=== PATIENT | female | born 1945 | race Caucasian/White ===

== ENCOUNTER → 2021-09-29 12:30 | Outpatient (CLI) | payer MEDICARE, OTHER, SELFPAY ==
--- NOTE | 2021-09-29 | DI.US.S_ITS ---
PROCEDURE: US ABDOMEN COMPLETE INDICATIONS: Unspecified abdominal pain TECHNIQUE: Real-time scanning was performed of the abdominal and retroperitoneal organs, with image documentation. COMPARISON: None. FINDINGS: Liver: Liver is normal in size and homogeneous in echotexture. Gallbladder: Gallbladder is partially contracted. There is a nonmobile echogenic structure measuring 0.8 cm, compatible with a non-mobile non-shadowing stone or polyp. Gallbladder wall thickness is normal. No pericholecystic fluid collection or sonographic James sign. Biliary ducts: Intrahepatic bile ducts are non-dilated. Extrahepatic bile duct caliber measures 3.5 mm. Normal is 6-7 mm or less in diameter, or 10 mm or less post-cholecystectomy. Pancreas: Visualized portions of the pancreas are sonographically normal. Spleen: Spleen is normal in size and homogeneous in echotexture. Kidneys: Kidneys are normal in size and echotexture. Right kidney measures 11.6 cm long; left kidney measures 10.3 cm long. No hydronephrosis or nephrolithiasis. No solid masses. There is a 3.6 cm diameter simple appearing cyst in mid left kidney. Aorta: Visualized aorta is normal in caliber at less than 3 cm. Iliacs: Proximal common iliac arteries are normal in caliber at less than 2.5 cm. IVC: Intrahepatic inferior vena cava is patent. Miscellaneous: No free abdominal fluid. IMPRESSION: 1. A 0.8 cm nonmobile, non-shadowing stone versus a polyp in gallbladder. A short-term follow-up ultrasound is recommended. Alternatively, MRCP may be obtained for further evaluation. 2. A 3.6 cm diameter simple cyst in left kidney. Dictated by: Kamar Patrick M.D. on 09/29/2021 at 14:36 Approved by: Kamar Patrick M.D. on 09/29/2021 at 14:43
== END ==
PROVIDERS: PCP Family Medicine; Referring Provider Family Medicine; Visit Provider Family Medicine
DX: R10.9 Unspecified abdominal pain (principal); N28.1 Cyst of kidney, acquired
CPT/HCPCS: 76700

== ENCOUNTER 2023-12-09 15:40 | Inpatient (IN) | payer MEDICARE, OTHER, MEDICAID, SELFPAY ==
[2023-12-09] VITALS (19 sets, daily range): BP systolic 96–146; BP diastolic 55–94; PULSE 59–111; RESP 35–55; TEMP 36.6–36.9; O2SAT 92–97; BMI 36.6; BMI 31.2
--- NOTE | 2023-12-09 15:58 | DI.RAD.S_ITS ---
PROCEDURE: XR CHEST 1V INDICATIONS: Shortness of breath TECHNIQUE: One view of the chest was acquired. COMPARISON: None. FINDINGS: Surgical changes and devices: None. Lungs and pleura: No pneumothorax. Small left greater than right pleural effusions. Moderate bibasilar airspace opacity. Mediastinum: Mediastinal contours appear normal. Heart size is normal. Bones and chest wall: No suspicious bony lesions. Overlying soft tissues appear unremarkable. IMPRESSION: Bibasilar pneumonia with parapneumonic effusions. Continued plain film surveillance is recommended to ensure resolution, and to exclude underlying or central malignancy. Dictated by: Janeth Aaron M.D. on 12/09/2023 at 16:15 Approved by: Janeth Aaron M.D. on 12/09/2023 at 16:16
[2023-12-09 16:32] LABS: Add Manual Diff / Slide Review NO; Basophils Absolute Auto 0 /uL (0-100); Basophils Percent Auto 0.4 % (0-2); Eosinophils Absolute Auto 0 /uL (0-450); Eosinophils Percent Auto 0.3 % (2-4); Hematocrit 46.3 % (36-46); Hemoglobin 15.4 g/dL (12.0-16.0); Lymphocytes Absolute Auto 700 /uL (1100-4500); Lymphocytes Percent Auto 8.7 % (25-40); Mean Corpuscular HGB Conc 33.3 % (30-36); Mean Corpuscular Hemoglobin 28.7 PG (26-34); Mean Corpuscular Volume 86.3 fL (80-100); Monocytes Absolute Auto 600 /uL (0-900); Monocytes Percent Auto 6.8 % (3-14); Neutrophils Absolute Auto 6900 /uL (1500-7000); Neutrophils Percent Auto 83.8 % (50-75); Platelet Count 272 X10^3/uL (150-400); Red Blood Cell Count 5.37 X10^6/uL (4.0-5.2); Red Cell Distribution Width 13.2 % (11.6-14.8); White Blood Cell Count 8.3 X10^3/uL (4.5-11.0)
[2023-12-09 16:38] LABS: Lactate (Lactic Acid) 1.6 mmol/L (0.7-2.1)
[2023-12-09 16:39] LABS: Alanine Aminotransferase 74 IU/L (<35); Albumin 3.9 g/dL (3.5-5.0); Albumin Globulin Ratio 1.3 (1.0-2.8); Alkaline Phosphatase 85 U/L (38-126); Aspartate Aminotransferase 44 IU/L (14-36); BUN Creatinine Ratio 25.6 (6-22); Bilirubin Total 0.8 mg/dL (0.2-1.3); Blood Urea Nitrogen 20 mg/dL (7-17); Calcium 9.5 mg/dL (8.4-10.2); Carbon Dioxide 22 mmol/L (22-32); Chloride 107 mmol/L (98-107); Estimated Glomerular Filt Rate > 60 mL/min (>60); Glucose 120 mg/dL (80-110); HEMOLYSIS < 15 (0-50); Potassium 4.5 mmol/L (3.4-5.1); Sodium 135 mmol/L (137-145); Total Protein 6.9 g/dL (6.3-8.2)
[2023-12-09 16:51] LABS: NT-proBNP (BNP-Adult 18+) 6860 pg/mL (<450)
[2023-12-09 17:15] LABS: Influenza A - CEPHEID Flu A NEGATIVE (NEGATIVE); Influenza B - CEPHEID Flu B NEGATIVE (NEGATIVE); Respiratory Syncytial Virus Negative (Negative)
[2023-12-09 17:27] LABS: COVID-19 CEPHEID 4-PLEX PCR Negative (Negative)
--- NOTE | 2023-12-09 18:02 | ED_ITS ---
HPI - General Adult General Chief complaint: Shortness of Breath/Dyspnea Stated complaint: difficulty breathing Time Seen by Provider: 12/09/23 17:49 Source: patient and family Mode of arrival: Wheelchair History of Present Illness HPI narrative: 78-year-old female. No diagnose history of coronary artery disease, lung pathology such as COPD or asthma or congestive heart failure. Approximately 3 weeks ago she started to have shortness of breath on exertion. It has progressively worsened since then to the point where she can not lay flat. She can only walk a few steps without becoming short of breath. Today she developed swelling in her lower extremities. She was seen at a walk-in clinic the couple days ago. Had a chest x-ray. Was told that she would some fluid on her lungs. Was diagnosed with pneumonia. Was prescribed azithromycin. It took some time for her to pick this medication up so she was only had 1 dose of that medication which was today. She is having some cough which is causing her chest discomfort otherwise no chest pain. No fevers. No sinus congestion. No abdominal pain or nausea vomiting. Related Data Home Medications Medication Instructions Recorded Confirmed amoxicillin-potassium clavulanate 2 tab PO BID 12/09/23 12/09/23 1,000 mg-62.5 mg tablet,ext.rel 12hr azithromycin 250 mg tablet mg PO 12/09/23 furosemide 20 mg tablet 20 mg PO QAM 12/09/23 12/09/23 Allergies Allergy/AdvReac Type Severity Reaction Status Date / Time No Known Drug Allergies Allergy Verified 12/09/23 15:46 Review of Systems Review of Systems ROS Unobtainable: All systems reviewed & are unremarkable except as noted in HPI and below Patient History Social History Smoking Status: Former smoker Smoking Status: Former smoker Substance Use Type: does not use Exam Initial Vital Signs Initial Vital Signs: Vital Signs Temperature 98.4 F 12/09/23 15:46 Pulse Rate 109 H 12/09/23 15:46 Respiratory Rate 40 H 12/09/23 15:46 Blood Pressure 121/70 12/09/23 15:46 Pulse Oximetry 97 12/09/23 15:46 Oxygen Delivery Method Room Air 12/09/23 15:46 Const General: cooperative HENMT Head: normal to inspection and normocephalic Resp Effort & Inspection: cough, labored, no retractions and tachypneic Auscultation: rales Cardio Rate: tachycardic Rhythm: regular rhythm GI Inspection: normal to inspection and non-distended Skin General: no rashes or lesions noted Neuro General: patient alert, patient awake, patient oriented x3 and moves all extremities Extrem General: edema Scores GCS [place] coma scale eye opening: Spontaneous [place] coma scale verbal response: Orientated [place] coma scale motor response: Obey commands [place] coma scale total score: 15 Course Orders Ordered: ED Orders 12/09/23 15:58 XR chest 1V Stat EKG-12 Lead Stat Measure peak expiratory flow ONCE RT Consult Eval and Treat NOW 12/09/23 15:59 Covid-19 + FLU A/B + RSV - PCR Stat 12/09/23 16:18 Complete Blood Count AUTO DIFF Stat Comprehensive Metabolic Panel Stat Lactate (Lactic Acid) Stat NT-proBNP (BNP-Adult 18+) Stat Prothrombin Time INR Stat Troponin I Stat 12/09/23 19:27 Troponin & CK Cardiac Panel Stat Acetaminophen (Acetaminophen 325 Mg Tablet) 650 mg PO Q6H PRN PRN Reason: Fever/Mild Pain (1-3) Enoxaparin Sodium (Enoxaparin 40 Mg/0.4 Ml Syringe) 40 mg SUBCUT DAILY ODELL Furosemide (Furosemide 40 Mg/4 Ml Vial) 40 mg IV DAILY ODELL Naloxone HCl (Naloxone 0.4 Mg/Ml Vial) 0.2 mg IV Q2MIN PRN PRN Reason: Opiate Reversal Ondansetron HCl (Ondansetron 4 Mg/2 Ml Inj) 4 mg IV Q4HR PRN PRN Reason: nausea Discontinued Medications Furosemide 60 mg/ Sodium (Chloride) 56 mls @ 112 mls/hr IV NOW ONE Stop: 12/09/23 18:03 Last Infusion: 12/09/23 19:06 Dose: Infused Documented By: Admin: 12/09/23 18:36 Dose: 112 mls/hr Documented By: ALEXEY Lorazepam (Lorazepam 2 Mg/Ml Inj) 0.5 mg IV NOW ONE Stop: 12/09/23 19:09 Last Admin: 12/09/23 19:23 Dose: 0.5 mg Documented By: CHRISTI Vital Signs Vital signs: Vital Signs - 8 hr 12/09/23 15:46 12/09/23 16:12 12/09/23 16:14 Temperature 98.4 F Pulse Rate 109 H 106 H 106 H Respiratory Rate 40 H 46 H Blood Pressure 121/70 Pulse Oximetry 97 Oxygen Delivery Method Room Air 12/09/23 16:14 12/09/23 16:30 12/09/23 16:31 Temperature Pulse Rate 102 H Respiratory Rate 42 H Blood Pressure 133/62 104/61 Pulse Oximetry 95 Oxygen Delivery Method 12/09/23 16:31 12/09/23 17:00 12/09/23 17:00 Temperature Pulse Rate 103 H 101 H Respiratory Rate 45 H 43 H Blood Pressure 98/55 L Pulse Oximetry 95 95 Oxygen Delivery Method 12/09/23 17:30 12/09/23 17:30 12/09/23 18:00 Temperature Pulse Rate 101 H 104 H Respiratory Rate 42 H 51 H Blood Pressure 96/57 L Pulse Oximetry 95 94 Oxygen Delivery Method 12/09/23 18:27 12/09/23 18:27 12/09/23 18:30 Temperature Pulse Rate 111 H 107 H Respiratory Rate 51 H 52 H Blood Pressure 146/82 H Pulse Oximetry 92 92 Oxygen Delivery Method 12/09/23 18:31 12/09/23 18:31 12/09/23 19:00 Temperature Pulse Rate 106 H 109 H Respiratory Rate 54 H 48 H Blood Pressure 137/94 H Pulse Oximetry 93 Oxygen Delivery Method 12/09/23 19:30 12/09/23 20:00 Temperature Pulse Rate 105 H 99 H Respiratory Rate 37 H 37 H Blood Pressure Pulse Oximetry 96 93 Oxygen Delivery Method Room Air Room Air Medical Decision Making Lab Data Lab results reviewed: Yes I reviewed the patient's lab results. 12/09/23 16:18 12/09/23 16:18 Labs: Lab Results 12/09/23 12/09/23 12/09/23 Range/Units 15:59 16:18 19:27 WBC 8.3 (4.5-11.0) X10^3/uL RBC 5.37 H (4.0-5.2) X10^6/uL Hgb 15.4 (12.0-16.0) g/dL Hct 46.3 H (36-46) % MCV 86.3 (80-100) fL MCH 28.7 (26-34) PG MCHC 33.3 (30-36) % RDW 13.2 (11.6-14.8) % Plt Count 272 (150-400) X10^3/uL Neut % (Auto) 83.8 H (50-75) % Lymph % (Auto) 8.7 L (25-40) % Harlan % (Auto) 6.8 (3-14) % Eos % (Auto) 0.3 L (2-4) % Baso % (Auto) 0.4 (0-2) % Neut # (Auto) 6900 (2053-2820) /uL Lymph # (Auto) 700 L (3336-6138) /uL Harlan # (Auto) 600 (0-900) /uL Eos # (Auto) 0 (0-450) /uL Baso # (Auto) 0 (0-100) /uL PT 11.9 (9.4-12.5) SECONDS INR 1.0 (0.9-1.3) Sodium 135 L (137-145) mmol/L Potassium 4.5 (3.4-5.1) mmol/L Chloride 107 (98-107) mmol/L Carbon Dioxide 22 (22-32) mmol/L BUN 20 H (7-17) mg/dL Creatinine 0.78 (0.52-1.04) mg/dL Estimated GFR > 60 (>60) mL/min BUN/Creatinine Ratio 25.6 H (6-22) Glucose 120 H (80-110) mg/dL Lactate 1.6 (0.7-2.1) mmol/L Calcium 9.5 (8.4-10.2) mg/dL Total Bilirubin 0.8 (0.2-1.3) mg/dL AST 44 H (14-36) IU/L ALT 74 H (<35) IU/L Alkaline Phosphatase 85 (38-126) U/L Total Creatine Kinase 104 (30-135) U/L Troponin I 0.060 H 0.065 H (0.01-0.034) ng/mL NT-Pro-B Natriuret Pep 6860 H (<450) pg/mL Total Protein 6.9 (6.3-8.2) g/dL Albumin 3.9 (3.5-5.0) g/dL Globulin 3.0 (1.7-4.1) g/dL Albumin/Globulin Ratio 1.3 (1.0-2.8) SARS-CoV-2 (PCR) Negative (Negative) Influenza A (RT-PCR) Flu a negative (NEGATIVE) Influenza B (RT-PCR) Flu b negative (NEGATIVE) RSV (PCR) Negative (Negative) Urine Dip Bedside Urine Glucose Negative Bedside Urine Bilirubin - Negative Bedside Urine Ketone - Negative Urine Specific [place] 1.015 Bedside Urine Occult Blood - Negative Bedside Urine pH 6.0 Bedside Urine Protein - Negative Bedside Urine Urobilinogen - Negative Bedside Urine Nitrite - Negative Bedside Urine Leukocytes - Negative Esterase Point of care testing: Urine Dip Bedside Urine Glucose Negative Bedside Urine Bilirubin - Negative Bedside Urine Ketone - Negative Urine Specific [place] 1.015 Bedside Urine Occult Blood - Negative Bedside Urine pH 6.0 Bedside Urine Protein - Negative Bedside Urine Urobilinogen - Negative Bedside Urine Nitrite - Negative Bedside Urine Leukocytes - Negative Esterase Imaging Data Chest x-ray: Radiologist's Impression: PROCEDURE: XR CHEST 1V INDICATIONS: Shortness of breath TECHNIQUE: One view of the chest was acquired. COMPARISON: None. FINDINGS: Surgical changes and devices: None. Lungs and pleura: No pneumothorax. Small left greater than right pleural effusions. Moderate bibasilar airspace opacity. Mediastinum: Mediastinal contours appear normal. Heart size is normal. Bones and chest wall: No suspicious bony lesions. Overlying soft tissues appear unremarkable. IMPRESSION: Bibasilar pneumonia with parapneumonic effusions. Continued plain film surveillance is recommended to ensure resolution, and to exclude underlying or central malignancy. ECG Data Attestation: I personally reviewed and interpreted this ECG as follows: Interpretation: Sinus tachycardia Ventricular rate 103 Normal axis Normal QRS Normal QTC no ST T wave changes MDM Narrative Medical decision making narrative: Patient clinically is fluid overloaded. Has crackles on exam. The chest x-ray shows bilateral findings which would be more consistent with edema rather than an infection. She was lower extremity edema. She was orthopneic, dyspneic. She has not hypoxic. Not requiring oxygen. No ischemic changes in the EKG. BNP elevated. Troponin elevated most likely secondary to fluid overload. I have a higher suspicion that this is CHF rather than COPD or pneumonia. Patient was given Lasix. Diuresed approximately 1200 cc. Improved tachypnea a small amount. Discussed the case with hospitalist on-call who will admit for further evaluation and treatment. Discussed the need for admission with the patient. Discharge Plan Departure Patient Disposition: Admitted as Observation Clinical Impression: CHF (congestive heart failure) Admit Date/Time: 12/09/23 20:29 Admit Provider: Hans Vasquez
[2023-12-09 18:08] LABS: Prothrombin Time 11.9 SECONDS (9.4-12.5)
[2023-12-09] MEDS: FUROSEMIDE 60 MG in SODIUM CHLORIDE 0.9% 50 ML 112 MG IV (18:36)
--- NOTE | 2023-12-09 19:06 | PC.NURSE ---
Pt OOB to commode. Continues to be tachypneic and shallow breathing with RR 50's. SPO2 97%. Dr Thrasher made aware. Awaiting new orders.
[2023-12-09] MEDS: LORazepam 2 MG/ML INJ 0.5 MG IV (19:23)
[2023-12-09 19:46] LABS: Creatine Kinase 104 U/L (30-135)
[2023-12-09 19:59] LABS: Troponin I 0.065 ng/mL (0.01-0.034)
--- NOTE | 2023-12-09 20:08 | PC.NURSE ---
Pt breathing is slightly less tachypnic and pt looks slightly less in distress compared to when this nurse came on shift at 1900.
--- NOTE | 2023-12-09 21:09 | DI.ECHO.S_ITS ---
[facility]---------+ [facility] +---------+ : : [address] [address] : : : : [id number] : : : : Phone: [phone] Echocardiogram Report + + :Name: JESSICA ROSSI Study Date: 12/10/2023 Height: 62 in : [facility] ReadingLocation: Weight: 200 lb: : Gender: Female BSA: 1.9 m2 : :: 1945 Age: 78 yrs BP: 98/60 mmHg: :Reason For Study: CONGESTIVE HEART FAILURE : :Ordering Physician: SOCORRO, : :TEJA Braswell MD Performed By: Franchesca Hudson : :Referring: TEJA QUINTANILLA MD : + + Interpretation Summary The left ventricle is normal in size. Left ventricular systolic function is moderately reduced. Left ventricular ejection fraction is estimated to be 35%. Left ventricular global longitudinal strain average is -11.7%. There is moderate global hypokinesis of the left ventricle. The right ventricle is normal in size and function. The right ventricular systolic pressure is estimated to be at least 53 mmHg based on an estimated right atrial pressure of 3 mm Hg. The left atrium is mildly dilated. There is mild mitral stenosis. There is mild to moderate mitral regurgitation. There is critically severe aortic stenosis. The peak aortic velocity is 4.96 m/sec. The calculated aortic valve area is 0.37 cm2. There is mild aortic regurgitation. There is mild to moderate tricuspid regurgitation. The aortic root is normal size. Procedure: A two-dimensional transthoracic echocardiogram with color flow and Doppler was performed. The study quality was technically difficult. There is no prior echocardiogram noted for this patient. The heart rate ranged between 93-101 bpm during the study. Left Ventricle: The left ventricle is normal in size. Left ventricular wall thickness is at the upper limits of normal. Left ventricular systolic function is moderately reduced. Left ventricular global longitudinal strain average is -11.7%. Left ventricular ejection fraction is estimated to be 35%. There is moderate global hypokinesis of the left ventricle. Diastolic function could not be accurately assessed due to confounding valvular disease. Right Ventricle: The right ventricle is normal in size and function. Atria: The left atrium is mildly dilated. Right atrial size is normal. There is no Doppler evidence for an interatrial shunt. Mitral Valve: There is moderate mitral annular calcification. The mitral valve leaflets are moderately calcified. There is mild mitral stenosis. The mitral valve mean gradient is 6.1 mmHg. There is mild to moderate mitral regurgitation. Aortic Valve: The aortic valve is heavily calcified. There is severely reduced leaflet mobility. There is critically severe aortic stenosis. The peak aortic velocity is 4.96 m/sec. The aortic valve mean gradient is 69 mmHg. The calculated aortic valve area is 0.37 cm2. There is mild aortic regurgitation. Tricuspid Valve: The tricuspid valve leaflets are thin and pliable. There is mild to moderate tricuspid regurgitation. The right ventricular systolic pressure is estimated to be at least 53 mmHg based on an estimated right atrial pressure of 3 mm Hg. Pulmonic Valve: The pulmonic valve leaflets are thin and pliable; valve motion is normal. There is mild pulmonic regurgitation. Great Vessels: The aortic root is normal size. The dimensions of the ascending aorta are normal. The IVC is of normal diameter and collapses greater than 50% with a sniff. This suggests a low right atrial pressure of 3 mm Hg. Pericardium/ Pleura There is no pericardial effusion. There is no pleural effusion. MMode/2D Measurements & Calculations LVIDd: 4.7 cm LVOT diam: 2.0 cm LVIDs: 4.0 cm Ao root diam: 2.5 cm FS: 14.9 % asc Aorta Diam: 2.8 cm EPSS: 1.5 cm IVSd: 0.99 cm LVPWd: 1.0 cm LV tillman. diameter/BSA (cm/m^2): 2.4 LV sys. diameter/BSA (cm/m^2): 2.1 LA A2 area: 22.7 cm2 RA long axis: 4.2 cm LA A4 area: 20.8 cm2 RA area: 15.0 cm2 LA length (vol): 5.3 cm RA vol: 45.0 ml LA vol: 75.2 ml RA : 23.5 ml/m2 LA vol index: 39.4 ml/m2 IVC diam: 1.7 cm RVD1 (basal): 3.0 cm RVD2 (mid): 2.7 cm TAPSE: 1.8 cm Doppler Measurements & Calculations Ao V2 max: 496.5 cm/sec LVOT Max Sal: 61.1 cm/sec Ao V2 mean: 388.2 cm/sec LV V1 max P.5 mmHg Ao max P.6 mmHg LV V1 VTI: 12.1 cm Ao mean P.1 mmHg TIFFANY(I,D): 0.33 cm2 Ao V2 VTI: 111.5 cm TIFFANY(V,D): 0.37 cm2 sev ratio: 0.11 TIFFANY indexed to BSA (cm^2/m^2): 0.17 MV E max sal: 147.7 cm/sec TR max sal: 354.3 cm/sec MV A max sal: 102.1 cm/sec TR max P.2 mmHg MV E/A: 1.4 PA V2 max: 96.0 cm/sec Med Peak E' Sal: 4.6 cm/sec PA V2 mean: 67.4 cm/sec E/E' med: 31.9 PA mean P.0 mmHg Lat Peak E' Sal: 6.4 cm/sec PA pr(Accel): 48.2 mmHg E/E' lat: 23.1 E/e' average: 27.5 MV dec time: 0.18 sec MVA(VTI): 1.2 cm2 MV V2 mean: 108.9 cm/sec SV(LVOT): 36.4 ml MV mean P.1 mmHg MV V2 VTI: 30.9 cm Reading Physician:08:42 AM
--- NOTE | 2023-12-09 21:23 | PM.HP.1 ---
History of Present Illness History of Present Illness Date Patient Seen: 12/09/23 Chief complaint: difficulty breathing PFSH Social History Smoking Status: Former smoker Meds Home Medications and Allergies Home Medications Medication Instructions Recorded Confirmed Type azithromycin 250 mg tablet 250 mg PO DAILY 12/09/23 12/09/23 History furosemide 20 mg tablet 20 mg PO QAM 12/09/23 12/09/23 History Allergies Allergy/AdvReac Type Severity Reaction Status Date / Time No Known Drug Allergies Allergy Verified 12/09/23 15:46 Exam Vital Signs (past 8 hours): - 12/09/23 15:46 12/09/23 16:12 12/09/23 16:14 Temperature 98.4 F Pulse Rate 109 H 106 H 106 H Respiratory Rate 40 H 46 H Blood Pressure 121/70 Pulse Oximetry 97 Oxygen Delivery Method Room Air 12/09/23 16:14 12/09/23 16:30 12/09/23 16:31 Temperature Pulse Rate 102 H Respiratory Rate 42 H Blood Pressure 133/62 104/61 Pulse Oximetry 95 Oxygen Delivery Method 12/09/23 16:31 12/09/23 17:00 12/09/23 17:00 Temperature Pulse Rate 103 H 101 H Respiratory Rate 45 H 43 H Blood Pressure 98/55 L Pulse Oximetry 95 95 Oxygen Delivery Method 12/09/23 17:30 12/09/23 17:30 12/09/23 18:00 Temperature Pulse Rate 101 H 104 H Respiratory Rate 42 H 51 H Blood Pressure 96/57 L Pulse Oximetry 95 94 Oxygen Delivery Method 12/09/23 18:27 12/09/23 18:27 12/09/23 18:30 Temperature Pulse Rate 111 H 107 H Respiratory Rate 51 H 52 H Blood Pressure 146/82 H Pulse Oximetry 92 92 Oxygen Delivery Method 12/09/23 18:31 12/09/23 18:31 12/09/23 19:00 Temperature Pulse Rate 106 H 109 H Respiratory Rate 54 H 48 H Blood Pressure 137/94 H Pulse Oximetry 93 Oxygen Delivery Method 12/09/23 19:30 12/09/23 20:00 Temperature Pulse Rate 105 H 99 H Respiratory Rate 37 H 37 H Blood Pressure Pulse Oximetry 96 93 Oxygen Delivery Method Room Air Room Air Oxygen Delivery Method Room Air Objective Labs 12/09/23 16:18 12/09/23 16:18 Labs: Laboratory Results - last 24 hr 12/09/23 12/09/23 12/09/23 15:59 16:18 19:27 WBC 8.3 RBC 5.37 H Hgb 15.4 Hct 46.3 H MCV 86.3 MCH 28.7 MCHC 33.3 RDW 13.2 Plt Count 272 Neut % (Auto) 83.8 H Lymph % (Auto) 8.7 L Sampson % (Auto) 6.8 Eos % (Auto) 0.3 L Baso % (Auto) 0.4 Neut # (Auto) 6900 Lymph # (Auto) 700 L Sampson # (Auto) 600 Eos # (Auto) 0 Baso # (Auto) 0 PT 11.9 INR 1.0 Sodium 135 L Potassium 4.5 Chloride 107 Carbon Dioxide 22 BUN 20 H Creatinine 0.78 Estimated GFR > 60 BUN/Creatinine Ratio 25.6 H Glucose 120 H Lactate 1.6 Calcium 9.5 Total Bilirubin 0.8 AST 44 H ALT 74 H Alkaline Phosphatase 85 Total Creatine Kinase 104 Troponin I 0.060 H 0.065 H NT-Pro-B Natriuret Pep 6860 H Total Protein 6.9 Albumin 3.9 Globulin 3.0 Albumin/Globulin Ratio 1.3 SARS-CoV-2 (PCR) Negative Influenza A (RT-PCR) Flu a negative Influenza B (RT-PCR) Flu b negative RSV (PCR) Negative Assessment & Plan Assessment and plan (1) CHF (congestive heart failure): Status: Acute (2) HTN (hypertension): Status: Acute (3) Elevated troponin: Status: Acute Assessment & Plan narrative: 1. CHF - in the setting of HTN and elevated troponins - telemetry monitoring, diuresed, electrolytes, Is/Os, daily weight monitored - ECHO pending 2. HTN 3. Elevated troponins - EKG w/o ischemic changes and w/o chest pain - ECHO to r/o wall motion abnormalities - ASA - pending lipids, A1C, TSH DVT prophylaxis - Lovenox
--- NOTE | 2023-12-09 22:03 | PM.HP.1 ---
History of Present Illness History of Present Illness Date Patient Seen: 12/09/23 Time Patient Seen: 22:00 Date of Onset of Symptoms: 11/18/23 Chief complaint: difficulty breathing Narrative: 78 y/o without known PMH apart from former smoking, on no medications, developed progressive shortness of breath approximately 3 weeks ago. Initially short of breath with activity, subsequently developed orthopnea with b/l leg swelling. Few days ago seen in walk-in clinic and prescribed Augmentin / Z-pack for presumed PNA. She did not fill RXs up until this morning. In the ED workup showing CHF and elevated troponins. She denies chest pain or pressure, sweating, nausea, dizziness, either today or in the past. Denies chills, fever or productive cough. Given dose of Lasix ivp, 60 mg, in the ED and quickly diuresed 1.5 L. [facility] Social History household members: none Smoking Status: Former smoker alcohol intake: never Meds Home Medications and Allergies Home Medications Medication Instructions Recorded Confirmed Type azithromycin 250 mg tablet 250 mg PO DAILY 12/09/23 12/09/23 History furosemide 20 mg tablet 20 mg PO QAM 12/09/23 12/09/23 History Allergies Allergy/AdvReac Type Severity Reaction Status Date / Time No Known Drug Allergies Allergy Verified 12/09/23 15:46 Review of Systems Review of Systems Narrative: generalized weakness w/o sweats, chills, fever Cardiovascular Comments: progressive SOB, legs swelling, orthopnea w/o chest pain or palpitations Respiratory Comments: see above Gastrointestinal Comments: w/o complaints Genitourinary Comments: w/o complaints Exam Vital Signs (past 8 hours): - 12/09/23 15:46 12/09/23 16:12 12/09/23 16:14 Temperature 98.4 F Pulse Rate 109 H 106 H 106 H Respiratory Rate 40 H 46 H Blood Pressure 121/70 Pulse Oximetry 97 Oxygen Delivery Method Room Air 12/09/23 16:14 12/09/23 16:30 12/09/23 16:31 Temperature Pulse Rate 102 H Respiratory Rate 42 H Blood Pressure 133/62 104/61 Pulse Oximetry 95 Oxygen Delivery Method 12/09/23 16:31 12/09/23 17:00 12/09/23 17:00 Temperature Pulse Rate 103 H 101 H Respiratory Rate 45 H 43 H Blood Pressure 98/55 L Pulse Oximetry 95 95 Oxygen Delivery Method 12/09/23 17:30 12/09/23 17:30 12/09/23 18:00 Temperature Pulse Rate 101 H 104 H Respiratory Rate 42 H 51 H Blood Pressure 96/57 L Pulse Oximetry 95 94 Oxygen Delivery Method 12/09/23 18:27 12/09/23 18:27 12/09/23 18:30 Temperature Pulse Rate 111 H 107 H Respiratory Rate 51 H 52 H Blood Pressure 146/82 H Pulse Oximetry 92 92 Oxygen Delivery Method 12/09/23 18:31 12/09/23 18:31 12/09/23 19:00 Temperature Pulse Rate 106 H 109 H Respiratory Rate 54 H 48 H Blood Pressure 137/94 H Pulse Oximetry 93 Oxygen Delivery Method 12/09/23 19:30 12/09/23 20:00 12/09/23 20:30 Temperature Pulse Rate 105 H 99 H 96 H Respiratory Rate 37 H 37 H 55 H Blood Pressure Pulse Oximetry 96 93 94 Oxygen Delivery Method Room Air Room Air 12/09/23 21:00 12/09/23 21:24 12/09/23 21:25 Temperature Pulse Rate 90 59 L Respiratory Rate 40 H 42 H Blood Pressure 106/66 Pulse Oximetry 94 Oxygen Delivery Method Oxygen Delivery Method Room Air Narrative Exam Narrative: laying in bed in no distress HENMT Other: normocephalic, oropharynx of normal appearance Eyes Other: eomi Neck Other: w/o JVD Resp Other: b/l rhonchi Cardio Other: RRR / borderline bradycardic Skin Other: w/o rashes Neuro Other: w/o focal deficits Extrem Other: b/l leg swelling Psych Other: appropriate mood, lucid Objective ECG Impression: NSR, w/o ischemic changes Labs 12/09/23 16:18 12/09/23 16:18 Labs: Laboratory Results - last 24 hr 12/09/23 12/09/23 12/09/23 15:59 16:18 19:27 WBC 8.3 RBC 5.37 H Hgb 15.4 Hct 46.3 H MCV 86.3 MCH 28.7 MCHC 33.3 RDW 13.2 Plt Count 272 Neut % (Auto) 83.8 H Lymph % (Auto) 8.7 L [place] % (Auto) 6.8 Eos % (Auto) 0.3 L Baso % (Auto) 0.4 Neut # (Auto) 6900 Lymph # (Auto) 700 L [place] # (Auto) 600 Eos # (Auto) 0 Baso # (Auto) 0 PT 11.9 INR 1.0 Sodium 135 L Potassium 4.5 Chloride 107 Carbon Dioxide 22 BUN 20 H Creatinine 0.78 Estimated GFR > 60 BUN/Creatinine Ratio 25.6 H Glucose 120 H Lactate 1.6 Calcium 9.5 Total Bilirubin 0.8 AST 44 H ALT 74 H Alkaline Phosphatase 85 Total Creatine Kinase 104 Troponin I 0.060 H 0.065 H NT-Pro-B Natriuret Pep 6860 H Total Protein 6.9 Albumin 3.9 Globulin 3.0 Albumin/Globulin Ratio 1.3 SARS-CoV-2 (PCR) Negative Influenza A (RT-PCR) Flu a negative Influenza B (RT-PCR) Flu b negative RSV (PCR) Negative Assessment & Plan Assessment and plan (1) CHF (congestive heart failure): Status: Acute (2) Elevated troponin: Status: Acute Assessment & Plan narrative: 1. CHF - ECHO pending - new onset - had 60 mg of Lasix in the ED, continue with 40 in am and adjust based on output - monitored electrolytes, TSH - Is/Os, daily weight 2. Elevated Troponins - media monitor, ECHO for suspected wall motion abnormalities, lipid panel, A1C - w/o angina, EKG non-ischemic - ASA - cardiology referral - A1C - TSH DVT prophylaxis - Lovenox Quality VTE Deep Vein Thrombosis/Pulmonary Embolism Present on Admission: No
[2023-12-10] VITALS: BP 110/72; PULSE 94; RESP 34; TEMP 36.7; O2SAT 97
[2023-12-10 00:34] LABS: HEMOLYSIS 21 (0-50); Potassium 4.4 mmol/L (3.4-5.1)
[2023-12-10 00:50] LABS: Troponin I 0.076 ng/mL (0.01-0.034)
[2023-12-10 00:55] LABS: Hemoglobin A1C% w Est Avg Glu 5.4 % (4.0-6.0); Procalcitonin 0.08 ng/mL (<0.5)
[2023-12-10 01:09] LABS: TSH w/ Reflex to FT4 3.88 uIU/mL (0.47-4.68)
[2023-12-10 03:00] VITALS: BP 98/60; PULSE 98; RESP 37; TEMP 36.7; O2SAT 97
--- NOTE | 2023-12-10 04:07 | PC.ADMIT ---
[facility] Admission Note: Patient admitted to AC unit from ED at 21:45. Alert and oriented x 4, cooperative. Denied pain. Tele placed, ICU nurse notified. Oriented to room and call light. Bed in low/ locked position, call light within reach. Bed alarm on for safety. The patient,Keren Ledesma,78 y/o, was given written information regarding hospital policies, unit procedures and contact persons. Patient's smoking status: Former smoker. Vital Signs - 8 hr 12/09/23 20:30 12/09/23 20:32 12/09/23 21:00 Temperature Pulse Rate 96 H 90 Respiratory Rate 55 H 40 H Blood Pressure Pulse Oximetry 94 94 Oxygen Delivery Method Nasal Cannula Oxygen Flow Rate Fraction of Inspired Oxygen 12/09/23 21:24 12/09/23 21:25 12/10/23 00:00 Temperature 98.1 F Pulse Rate 59 L 94 H Respiratory Rate 42 H 34 H Blood Pressure 106/66 110/72 Pulse Oximetry 97 Oxygen Delivery Method Oxygen Flow Rate 2 Fraction of Inspired Oxygen 12/10/23 01:00 12/10/23 03:00 Temperature 98.1 F Pulse Rate 98 H Respiratory Rate 37 H Blood Pressure 98/60 Pulse Oximetry 97 Oxygen Delivery Method Nasal Cannula Oxygen Flow Rate 2 Fraction of Inspired Oxygen 28
--- NOTE | 2023-12-10 04:13 | RT ---
Spoke to pt regarding heated high flow oxygen therapy and it's benefits. Pt is reluctant, and refused this modality. She is currently supported on 2L NC. RN aware.
[2023-12-10 07:04] LABS: Add Manual Diff / Slide Review NO; Basophils Absolute Auto 0 /uL (0-100); Basophils Percent Auto 0.6 % (0-2); Eosinophils Absolute Auto 100 /uL (0-450); Eosinophils Percent Auto 0.9 % (2-4); Hematocrit 41.2 % (36-46); Hemoglobin 13.6 g/dL (12.0-16.0); Lymphocytes Absolute Auto 1500 /uL (1100-4500); Lymphocytes Percent Auto 19.3 % (25-40); Mean Corpuscular Hemoglobin 28.7 PG (26-34); Mean Corpuscular Volume 86.8 fL (80-100); Monocytes Absolute Auto 800 /uL (0-900); Monocytes Percent Auto 10.1 % (3-14); Neutrophils Absolute Auto 5500 /uL (1500-7000); Neutrophils Percent Auto 69.1 % (50-75); Platelet Count 261 X10^3/uL (150-400); Red Blood Cell Count 4.74 X10^6/uL (4.0-5.2)
[2023-12-10 07:30] LABS: BUN Creatinine Ratio 23.2 (6-22); Blood Urea Nitrogen 19 mg/dL (7-17); Calcium 8.9 mg/dL (8.4-10.2); Carbon Dioxide 24 mmol/L (22-32); Chloride 107 mmol/L (98-107); Cholesterol 137 mg/dL (140-199); Estimated Glomerular Filt Rate > 60 mL/min (>60); Glucose 88 mg/dL (80-110); HDL Cholesterol 38 mg/dL (40-60); HEMOLYSIS < 15 (0-50); LDL Cholesterol Calculated 80 mg/dL (<100); Magnesium 2.2 mg/dL (1.6-2.3); Sodium 134 mmol/L (137-145); Triglycerides 96 mg/dL (35-150)
[2023-12-10 08:06] LABS: Troponin I 0.077 ng/mL (0.01-0.034)
[2023-12-10 08:15] VITALS: BP 117/71; PULSE 97; RESP 20; TEMP 36.7; O2SAT 96
[2023-12-10] MEDS: FUROSEMIDE 20 MG/2 ML VIAL IV (09:17)
[2023-12-10] MEDS: ENOXAPARIN 40 MG/0.4 ML SYRINGE SUBCUT (09:19)
--- NOTE | 2023-12-10 11:39 | P.PN_ITS ---
Subjective Subjective Interval history: 78 F admitted with new diagnosis of heart failure. No chest pain today, shortness of breath is a bit improved but has dyspnea with minimal exertion still. Legs are still swollen. Echo shows EF of approx 35% today with critically severe aortic stenosis. Troponins uptrending very slightly this morning. Discussed with Dr. Jasmine of [facility], recommended transfer for [facility] and expedited valve replacement referral. Her BP was a bit soft after 60 mg of IV lasix, will reduce to 20 mg IV this morning. She remains on 2L O2. Exam Vital Signs (past 8 hours): - 12/10/23 08:15 Temperature 98.0 F Pulse Rate 97 H Respiratory Rate 20 Blood Pressure 117/71 Pulse Oximetry 96 Oxygen Flow Rate 2 Fraction of Inspired Oxygen 28 Oxygen Delivery Method Nasal Cannula Oxygen Flow Rate 2 Narrative Exam Narrative: General:? Patient is well developed and well nourished, in no distress at this time. HEENT:? Normocephalic, atraumatic, extraocular muscles intact, oral pharynx is clear and mucous membranes are moist. Neck: supple and symmetric, trachea is midline, no cervical adenopathy. Negative for JVD Chest:? Normal AP diameter and contour without kyphoscoliosis, no tachypnea, equal chest rise bilaterally. Lungs:? CTA b/l no wheezing rhonchi or rales. Cardio:?RRR no m/r/g. Abdomen: S NT ND. No CVA tenderness. Musculoskeletal:? Muscle strength and tone are equal within normal limits, no deformity. Extremities: No edema or joint effusions. No cyanosis or clubbing. Skin:? Pale,? Warm to touch,dry and intact without rashes, ulcerations or petechiae.? Neuro:? Alert and orientated x3,? sensation to touch intact in all extremities, no gross deficits noted of cranial nerves. Psych:? Patient has a well-kept appearance, appropriate affect, mental status attitude thought context and judgment are appropriate for age. Objective ECG Impression: Sinus tachycardia. Labs 12/10/23 06:15 12/10/23 06:15 Labs: Laboratory Results - last 24 hr 12/09/23 12/09/23 12/09/23 15:59 16:18 19:27 WBC 8.3 RBC 5.37 H Hgb 15.4 Hct 46.3 H MCV 86.3 MCH 28.7 MCHC 33.3 RDW 13.2 Plt Count 272 Neut % (Auto) 83.8 H Lymph % (Auto) 8.7 L [place] % (Auto) 6.8 Eos % (Auto) 0.3 L Baso % (Auto) 0.4 Neut # (Auto) 6900 Lymph # (Auto) 700 L [place] # (Auto) 600 Eos # (Auto) 0 Baso # (Auto) 0 PT 11.9 INR 1.0 Sodium 135 L Potassium 4.5 Chloride 107 Carbon Dioxide 22 BUN 20 H Creatinine 0.78 Estimated GFR > 60 BUN/Creatinine Ratio 25.6 H Glucose 120 H Hemoglobin A1c Lactate 1.6 Calcium 9.5 Magnesium Total Bilirubin 0.8 AST 44 H ALT 74 H Alkaline Phosphatase 85 Total Creatine Kinase 104 Troponin I 0.060 H 0.065 H NT-Pro-B Natriuret Pep 6860 H Total Protein 6.9 Albumin 3.9 Globulin 3.0 Albumin/Globulin Ratio 1.3 Triglycerides Cholesterol LDL Cholesterol, Calc HDL Cholesterol Procalcitonin TSH SARS-CoV-2 (PCR) Negative Influenza A (RT-PCR) Flu a negative Influenza B (RT-PCR) Flu b negative RSV (PCR) Negative 12/10/23 12/10/23 00:13 06:15 WBC 8.0 RBC 4.74 Hgb 13.6 Hct 41.2 MCV 86.8 MCH 28.7 MCHC 33.0 RDW 13.0 Plt Count 261 Neut % (Auto) 69.1 Lymph % (Auto) 19.3 L [place] % (Auto) 10.1 Eos % (Auto) 0.9 L Baso % (Auto) 0.6 Neut # (Auto) 5500 Lymph # (Auto) 1500 [place] # (Auto) 800 Eos # (Auto) 100 Baso # (Auto) 0 PT INR Sodium 134 L Potassium 4.4 4.0 Chloride 107 Carbon Dioxide 24 BUN 19 H Creatinine 0.82 Estimated GFR > 60 BUN/Creatinine Ratio 23.2 H Glucose 88 Hemoglobin A1c 5.4 Lactate Calcium 8.9 Magnesium 2.2 Total Bilirubin AST ALT Alkaline Phosphatase Total Creatine Kinase Troponin I 0.076 H 0.077 H NT-Pro-B Natriuret Pep Total Protein Albumin Globulin Albumin/Globulin Ratio Triglycerides 96 Cholesterol 137 L LDL Cholesterol, Calc 80 HDL Cholesterol 38 L Procalcitonin 0.08 TSH 3.88 SARS-CoV-2 (PCR) Influenza A (RT-PCR) Influenza B (RT-PCR) RSV (PCR) [facility] Social History household members: none Smoking Status: Former smoker alcohol intake: never Assessment & Plan Assessment & Plan narrative: 1. Acute systolic heart failure with acute respiratory failure with hypoxia - soft BP today with diuresis with 60 mg IV in the ER. Gave 20 mg IV this morning with slight improvement, will trial 40 mg IV this evening. - start GDMT with metoprolol and lisinopril when able, however with need for diuresis cannot initiate currently. - started asa 81 mg and atorvastatin 40 mg for now for possible CAD. - heart failure is likely a result of her severe aortic stenosis. - Discussed with Dr. Jasmine, cardiology, recommended transfer for [facility] currently and expedited valve replacement evaluation - discussed with patient the urgentness of this evaluation and need for transfer, she is feeling a bit overwhelmed at the moment. - TSH 3.88, LDL 80, HDL 38, TG 96. A1c 5.4%. 2. Myocardial injury - EKG without evidence of acute ischemia, reviewed personally. Shows sinus tachycardia. - continue to trend troponins until downtrending, currently 0.077. - will start ASA / statin for now. 3. Severe / critical Aortic stenosis - continue management as noted above. Code: Full, surrogate is patient's son DVT: Lovenox 40 mg daily. Dispo: Inpatient status, pending transfer as discussed above Discussed with cardiology as noted above to contribute to the above assessment an plan. Quality VTE Deep Vein Thrombosis/Pulmonary Embolism Present on Admission: No
[2023-12-10 13:58] LABS: Troponin I 0.062 ng/mL (0.01-0.034)
--- NOTE | 2023-12-10 14:07 | CM.DANOTE ---
Brief DCP Assessment Note pt is a 78yo F here following CHF/televated troponin. New diagnosis of heart failure. PCP Junior Hanccok Payer Medicare and [employer] reviewed EMR. Per chart review, pt lives alone in [place], normally indep at baseline. pt has been having SOB for three weeks and has gotten worse over time. Per hospitalist in rounds, EF of 35%, attempting to transfer pt for heart cath/valve eval/replacement.. Per hospitalist, anticipate transfer later this evening. Plan: plan to transfer to higher level of care. CM team will continue to follow as needed. ASHLI Godinez Discharge Planning/Care Management CM Discharge Assessment Start: 12/10/23 14:00 Freq: Status: Active Protocol: Document 12/10/23 14:00 (Rec: 12/10/23 14:06 [id number]) Discharge Planning Assessment Assigned Service Porter ASHLI Streeter Advance Directives? No History Provided By Patient,Medical Record Prior Living Arrangements House Household Members none Discharge Plan Transfer to Higher Level of Care Transportation Arrangement current plan is to transfer to higher level of care for heart cath/heart valve eval Whiteboard Updated in Patient Room with No name and ext. # of Service Porter Review Status In Process Next Review Type Continued Stay Review
[2023-12-10 16:50] VITALS: BP 102/71; PULSE 97; RESP 20; TEMP 36.3; O2SAT 98
--- NOTE | 2023-12-10 17:50 | PM.DS.1 ---
History of Present Illness History of Present Illness Date Patient Seen: 12/11/23 Time Patient Seen: 12:53 Date of Onset of Symptoms: 11/18/23 Chief complaint: difficulty breathing Narrative: Per admitting provider, 78 y/o without known PMH apart from former smoking, on no medications, developed progressive shortness of breath approximately 3 weeks ago. Initially short of breath with activity, subsequently developed orthopnea with b/l leg swelling. Few days ago seen in walk-in clinic and prescribed Augmentin / Z-pack for presumed PNA. She did not fill RXs up until this morning. In the ED workup showing CHF and elevated troponins. She denies chest pain or pressure, sweating, nausea, dizziness, either today or in the past. Denies chills, fever or productive cough. Given dose of Lasix ivp, 60 mg, in the ED and quickly diuresed 1.5 L. Discharge Providers Provider Date of admission: 12/09/23 20:29 Discharge Date: 12/11/23 Primary care physician: Junior Hancock MD Discharge provider: Timoteo Kennedy DO Summary Hospital Course Discharge Diagnosis: 1. Acute systolic heart failure with acute respiratory failure with hypoxia 2. Myocardial injury 3. Severe / critical Aortic stenosis Hospital Course: This is a 78 year old female who presented with signs and symptoms of new onset heart failure. She was admitted for further evaluation and diuresis as she was requiring 2L of oxygen at the time of admission. Echocardiogram showed an EF of approx 35% with critically severe aortic stenosis with valve area of 0.36, and velocity of 4.96 m/s. Her BP fell slightly with 60 mg of IV furosemide given in the ER, dose was reduced to 20 mg in the morning, and then 40 mg in the evening with improved BP. Was unable to initiate beta leif or bryce/arb due to blood pressures and need for diuresis. BP are improved on 12/10 and consider starting therapy tomorrow at accepting facility. With furosemide dosing, patient was net negative 3L since admission and weight was down 1 kg on 12/10. Troponin I peaked at 0.077 then downtrended. EKG showed sinus tachycardia without evidence of acute ischemia. Discussed with cardiology Dr. Jasmine ([facility]) whom recommended transfer for [facility] and urgent referral for consideration of Aortic valve replacement. Discussed with american sign language interpreter at [facility] whom agreed. Patient was accepted for transfer by Dr. Davidson, hospitalist, at [facility] where she was transferred for further evaluation and management of her acute heart failure. Please see above for additional information. 1. Acute systolic heart failure with acute respiratory failure with hypoxia - continues on 40 mg IV BID furosemide today. - start GDMT with metoprolol and lisinopril when able, however with need for diuresis cannot initiate currently. - started asa 81 mg and atorvastatin 40 mg for now for possible CAD. - heart failure is likely a result of her severe aortic stenosis. - Discussed with Dr. Jasmine, cardiology, recommended transfer for [facility] currently and expedited valve replacement evaluation - discussed with patient the urgentness of this evaluation and need for transfer, she is feeling a bit overwhelmed at the moment. - TSH 3.88, LDL 80, HDL 38, TG 96. A1c 5.4%. 2. Myocardial injury - EKG without evidence of acute ischemia, reviewed personally. Shows sinus tachycardia. - continue to trend troponins until downtrending, currently 0.077. - will start ASA / statin for now. 3. Severe / critical Aortic stenosis - continue management as noted above. Code: Full, surrogate is patient's son Dispo: Transfer to [facility]. Time Spent with Patient Time spent: Greater than 30 minutes Exam Vital Signs (past 8 hours): - 12/10/23 16:50 Temperature 97.3 F L Pulse Rate 97 H Respiratory Rate 20 Blood Pressure 102/71 Pulse Oximetry 98 Oxygen Flow Rate 2 Fraction of Inspired Oxygen 28 Oxygen Delivery Method Nasal Cannula Oxygen Flow Rate 2 Narrative Exam Narrative: General:? Mildly ill appearing female, fatigued CV: RRR no obvious m/r/g PULM: no rhonchi or rales, diminished bilateral bases Abd; S NT ND Ext: 2+ edema b/l LE Neuro: No focal deficits. Objective Labs 12/11/23 05:33 12/11/23 05:33 Labs: Laboratory Results - last 24 hr 12/09/23 12/09/23 12/10/23 16:18 19:27 00:13 WBC RBC Hgb Hct MCV MCH MCHC RDW Plt Count Neut % (Auto) Lymph % (Auto) [place] % (Auto) Eos % (Auto) Baso % (Auto) Neut # (Auto) Lymph # (Auto) [place] # (Auto) Eos # (Auto) Baso # (Auto) PT 11.9 INR 1.0 Sodium Potassium 4.4 Chloride Carbon Dioxide BUN Creatinine Estimated GFR BUN/Creatinine Ratio Glucose Hemoglobin A1c 5.4 Calcium Magnesium Total Creatine Kinase 104 Troponin I 0.065 H 0.076 H Triglycerides Cholesterol LDL Cholesterol, Calc HDL Cholesterol Procalcitonin 0.08 TSH 3.88 12/10/23 12/10/23 06:15 13:18 WBC 8.0 RBC 4.74 Hgb 13.6 Hct 41.2 MCV 86.8 MCH 28.7 MCHC 33.0 RDW 13.0 Plt Count 261 Neut % (Auto) 69.1 Lymph % (Auto) 19.3 L [place] % (Auto) 10.1 Eos % (Auto) 0.9 L Baso % (Auto) 0.6 Neut # (Auto) 5500 Lymph # (Auto) 1500 [place] # (Auto) 800 Eos # (Auto) 100 Baso # (Auto) 0 PT INR Sodium 134 L Potassium 4.0 Chloride 107 Carbon Dioxide 24 BUN 19 H Creatinine 0.82 Estimated GFR > 60 BUN/Creatinine Ratio 23.2 H Glucose 88 Hemoglobin A1c Calcium 8.9 Magnesium 2.2 Total Creatine Kinase Troponin I 0.077 H 0.062 H Triglycerides 96 Cholesterol 137 L LDL Cholesterol, Calc 80 HDL Cholesterol 38 L Procalcitonin TSH PFSH Social History household members: none Smoking Status: Former smoker alcohol intake: never Discharge Plan Discharge Plan Patient Disposition: [facility] Diet/Activity/Treatments Diet: Diet as Tolerated, Regular and Low-sodium Liquid consistency: Normal/Thin Food texture: Regular Activity: No restrictions Visit Report/Discharge Packet Instructions: Heart Failure, Aortic Stenosis -- Adult, How to Central With Heart Failure, Why It Is Important to Quit Smoking If You Have Heart Failure Stand Alone Forms: Congestive Heart Failure Discharge Data Primary Care Provider: Junior Hancock VTE Deep Vein Thrombosis/Pulmonary Embolism Present on Admission: No
[2023-12-10] MEDS: FUROSEMIDE 20 MG/2 ML VIAL 40 MG IV (18:20)
[2023-12-10 19:50] VITALS: BMI 31.2
[2023-12-10 19:51] VITALS: BMI 31.2
[2023-12-10] MEDS: ATORVASTATIN 20 MG TABLET 40 MG PO (20:07)
[2023-12-10 20:16] VITALS: BMI 31.2
[2023-12-10 20:54] VITALS: BP 111/63; PULSE 61; RESP 17; TEMP 36.3; O2SAT 99
--- NOTE | 2023-12-10 22:28 | PC.NURSE ---
Received call for patients Emergency contact (Corinna Perez) with concerns and questions, who asked about transfer to another facility. I informed her that a physician at [facility] had accepted, but that there is no available bed at this time. The patient would remain here until one opened. Corinna also stated that Pt has expressed that she wants to go home before they transfer her because she has things that needs to be done. This was verified by the RN caring for the patient. Both the Nurse and Corinna have discouraged the patient from attempting to go home because she is physically unable to do so. Crisrichelle also stated tghat she would like Social workers to look into finder caregivers for her at home, she states that she can help some but not all the help she needs. Corinna stated that the only safe family member to contact Is Tony Payne [phone], She had concerns about all other's being addicted and not sober. Later in the evening a granddaughter came by to visit and left a number to be contacted when patient was transferred, Leola Pabon [phone], apparently the patient approved.
[2023-12-11 00:38] VITALS: BP 110/60; PULSE 66; RESP 17; TEMP 35.9; O2SAT 94
[2023-12-11 05:00] VITALS: BP 130/66; PULSE 84; RESP 18; TEMP 36.4; O2SAT 96
[2023-12-11 05:47] LABS: Add Manual Diff / Slide Review NO; Basophils Absolute Auto 100 /uL (0-100); Basophils Percent Auto 0.6 % (0-2); Eosinophils Absolute Auto 200 /uL (0-450); Hematocrit 45.3 % (36-46); Hemoglobin 15.4 g/dL (12.0-16.0); Lymphocytes Absolute Auto 1800 /uL (1100-4500); Lymphocytes Percent Auto 21.8 % (25-40); Mean Corpuscular HGB Conc 34.1 % (30-36); Mean Corpuscular Hemoglobin 29.1 PG (26-34); Mean Corpuscular Volume 85.4 fL (80-100); Monocytes Absolute Auto 900 /uL (0-900); Monocytes Percent Auto 10.7 % (3-14); Neutrophils Absolute Auto 5500 /uL (1500-7000); Neutrophils Percent Auto 64.9 % (50-75); Platelet Count 253 X10^3/uL (150-400); Red Cell Distribution Width 13.3 % (11.6-14.8); White Blood Cell Count 8.5 X10^3/uL (4.5-11.0)
[2023-12-11 06:02] LABS: Alanine Aminotransferase 60 IU/L (<35); Albumin 3.9 g/dL (3.5-5.0); Albumin Globulin Ratio 1.3 (1.0-2.8); Alkaline Phosphatase 80 U/L (38-126); Aspartate Aminotransferase 33 IU/L (14-36); BUN Creatinine Ratio 25.9 (6-22); Bilirubin Total 0.8 mg/dL (0.2-1.3); Blood Urea Nitrogen 22 mg/dL (7-17); Calcium 9.3 mg/dL (8.4-10.2); Carbon Dioxide 26 mmol/L (22-32); Chloride 103 mmol/L (98-107); Estimated Glomerular Filt Rate > 60 mL/min (>60); Glucose 97 mg/dL (80-110); HEMOLYSIS < 15 (0-50); Magnesium 2.2 mg/dL (1.6-2.3); Potassium 3.9 mmol/L (3.4-5.1); Sodium 135 mmol/L (137-145); Total Protein 6.9 g/dL (6.3-8.2)
[2023-12-11] MEDS: ASPIRIN EC 81 MG TABLET PO (08:56)
[2023-12-11] MEDS: ENOXAPARIN 40 MG/0.4 ML SYRINGE SUBCUT (08:56)
[2023-12-11] MEDS: FUROSEMIDE 40 MG/4 ML VIAL IV (08:56)
--- NOTE | 2023-12-11 09:11 | CM.DPC ---
DCP Hospital Transfer Per MD, accepting physician at [facility] for hospital transfer for higher level of care need for CHF and hearing care professional working to set up time for transport to [facility]. ASHLI Mas
[2023-12-11 09:13] VITALS: O2SAT 96
--- NOTE | 2023-12-11 13:25 | PC.NURSE ---
Transfer: Pt transfered to [facility] by acls transport. Report given to amb crew. Report called to breanna at [facility]. Reviewed hospital course. How pt has been doing. Questions answered. She may return call at any time if needed.
== END 2023-12-11 13:20 | disposition short-term general hospital (02) | DRG 291 ==
LOC: ED 17:49 → AC 20:30
PROVIDERS: Emergency Medicine; Internal Medicine; Admitting Provider Internal Medicine; Emergency Provider Emergency Medicine; PCP Family Medicine; Referring Provider Emergency Medicine; Visit Provider Internal Medicine
DX: I11.0 Hypertensive heart disease with heart failure (principal); I50.21 Acute systolic (congestive) heart failure; J96.01 Acute respiratory failure with hypoxia; I5A Non-ischemic myocardial injury (non-traumatic); I35.0 Nonrheumatic aortic (valve) stenosis; Z87.891 Personal history of nicotine dependence
CPT/HCPCS: 0241U; 36415; 71045; 80048; 80053; 80061; 81003; 82550; 83036; 83605; 83735; 83880; 84132; 84145; 84443; 84484; 85025; 85610; 93005; 93306; 94762; 96365; 96375; 99284; 99285; J1650; J1940; J2060

== ENCOUNTER → 2024-09-21 11:53 | Outpatient (CLI) | payer MEDICARE, OTHER, MEDICAID, SELFPAY ==
--- NOTE | 2024-09-21 11:57 | DI.RAD.S_ITS ---
PROCEDURE: XR CHEST 2V INDICATIONS: Unspecified abdominal pain TECHNIQUE: 2 views of the chest were acquired. COMPARISON: [facility], CR, XR CHEST 1V, 12/09/2023, 15:59. FINDINGS: Surgical changes and devices: Ascending aortic stent. Left axillary lymph node dissection. Lungs and pleura: Lungs are clear. No pleural effusions or pneumothorax. Mediastinum: Mediastinal contours are normal. Heart size is normal. Bones and chest wall: No suspicious bony abnormalities. Soft tissues appear unremarkable. IMPRESSION: No acute cardiopulmonary abnormality is seen. Dictated by: Armando Duncan M.D. on 09/21/2024 at 12:13 Approved by: Armando Duncan M.D. on 09/21/2024 at 12:16
--- NOTE | 2024-09-21 11:57 | DI.US.S_ITS ---
PROCEDURE: US ABDOMEN COMPLETE INDICATIONS: Unspecified abdominal pain TECHNIQUE: Real-time scanning was performed of the abdominal and retroperitoneal organs, with image documentation. COMPARISON: [facility], , US ABDOMEN COMPLETE, 09/29/2021, 13:07. FINDINGS: Liver: Liver measures 12 cm. Increased echogenicity. Main portal vein is patent. Gallbladder: Cholelithiasis. No sonographic James sign borderline wall thickening at 3 mm. Biliary ducts: Intrahepatic bile ducts are non-dilated. Extrahepatic bile duct caliber measures 6 mm. Normal is 6-7 mm or less in diameter, or 10 mm or less post-cholecystectomy. Pancreas: Not well seen due to bowel gas Spleen: Not seen Kidneys: Kidneys are normal in size and echotexture. Right kidney measures 11 cm long; left kidney measures 10 cm long. No hydronephrosis or nephrolithiasis. No solid masses. Left-sided cyst measures up to 4.9 cm. Aorta: Visualized aorta is normal in caliber at less than 3 cm. Iliacs: Proximal common iliac arteries are normal in caliber at less than 2.5 cm. IVC: Intrahepatic inferior vena cava is patent. Miscellaneous: Overall limited study due to patient factors and significant bowel gas. IMPRESSION: Increased hepatic echogenicity, nonspecific, most commonly due to steatosis. Cholelithiasis without sonographic James sign. There is borderline gallbladder wall thickening on this study. Dictated by: Maxwell Cerrato M.D. on 09/21/2024 at 16:08 Approved by: Maxwell Cerrato M.D. on 09/21/2024 at 16:10
--- NOTE | 2024-09-21 12:47 | DI.US.S_ITS ---
PROCEDURE: US PELVIC COMPLETE INDICATIONS: PAIN TECHNIQUE: Real-time scanning was performed of the pelvic organs, with image documentation. Additional endovaginal scanning was necessary due to incomplete visualization of the adnexal and endometrial structures by transabdominal scanning. COMPARISON: None. FINDINGS: Uterus: History of hysterectomy. Ovaries: Surgically absent Other: No pathologic free fluid. IMPRESSION: No significant sonographic abnormality in the pelvis on transabdominal views. Dictated by: Maxwell Cerrato M.D. on 09/21/2024 at 16:10 Approved by: Maxwell Cerrato M.D. on 09/21/2024 at 16:11
== END ==
LOC: US 11:56
PROVIDERS: PCP Family Medicine; Referring Provider Family Medicine; Visit Provider Family Medicine
DX: R10.2 Pelvic and perineal pain (principal); K80.20 Calculus of gallbladder without cholecystitis without obstruction; R10.9 Unspecified abdominal pain; R05.9 Cough, unspecified; Z90.710 Acquired absence of both cervix and uterus; Z90.722 Acquired absence of ovaries, bilateral
CPT/HCPCS: 71046; 76700; 76856

== ENCOUNTER → 2024-11-06 14:48 | Outpatient (CLI) | payer MEDICARE, OTHER, MEDICAID, SELFPAY ==
[2024-10-26 13:14] VITALS: BMI 31.2
[2024-11-06 15:38] LABS: BUN Creatinine Ratio 29.6 (6-22); Blood Urea Nitrogen 21 mg/dL (7-17); Estimated Glomerular Filt Rate > 60 mL/min (>60)
== END ==
PROVIDERS: PCP Family Medicine; Referring Provider Surgery; Visit Provider Surgery
DX: R10.32 Left lower quadrant pain (principal)
CPT/HCPCS: 36415; 82565; 84520

== ENCOUNTER → 2024-11-09 11:01 | Outpatient (CLI) | payer MEDICARE, OTHER, MEDICAID, SELFPAY ==
[2024-10-26 13:14] VITALS: BMI 31.2
--- NOTE | 2024-11-09 11:02 | DI.CT.S_ITS ---
PROCEDURE: CT ABDOMEN PELVIS W CON INDICATIONS: abdominal distention, left lower quadrant pain, constipation TECHNIQUE: After the administration of intravenous contrast, axial sections acquired from the lung bases to the pubic symphysis. Coronal and sagittal reformats were performed. For radiation dose reduction, the following was used: automated exposure control, adjustment of mA and/or kV according to patient size. COMPARISON: None. FINDINGS: Image quality: Diagnostic. Lower Chest: Left breast implant. ABDOMEN: Liver: No solid mass. Focal fat adjacent to the falciform ligament. Gallbladder: No radiopaque gallstones or wall thickening. Biliary ducts: No biliary dilation. Pancreas: No ductal dilation. Spleen: Size is within normal limits. Adrenal Glands: No adrenal nodules. Kidneys and Ureters: No hydronephrosis. No solid mass. No complex renal cystic lesion which requires follow up. Stomach and Bowel: Normal colonic caliber, without significant wall thickening. Colonic diverticulosis without evidence of diverticulitis. Peritoneum: No abnormal intraperitoneal fluid. No free air. Ventral Wall: Small umbilical hernia containing fat. Abdominal Nodes: No retroperitoneal or mesenteric adenopathy by size criteria. Vessels: Aorta and inferior vena cava are normal in size. PELVIS: Pelvic Organs: Unremarkable. Bladder: No bladder wall thickening, accounting for underdistention. Pelvic Nodes: No enlarged lymph nodes. Miscellaneous: No inguinal hernias are seen. Bones: No aggressive osseous abnormality. Degenerative disc disease of the lumbar spine. This is most prominent at L5-S1. IMPRESSION: Colonic diverticulosis without evidence of diverticulitis. Dictated by: Zhang Anderson M.D. on 11/09/2024 at 16:58 Approved by: Zhang Anderson M.D. on 11/09/2024 at 17:01
== END ==
PROVIDERS: PCP Family Medicine; Referring Provider Surgery; Visit Provider Surgery
DX: K56.609 Unspecified intestinal obstruction, unspecified as to partial versus complete obstruction (principal); R10.32 Left lower quadrant pain; K42.9 Umbilical hernia without obstruction or gangrene; K57.90 Diverticulosis of intestine, part unspecified, without perforation or abscess without bleeding; M51.369 Other intervertebral disc degeneration, lumbar region without mention of lumbar back pain or lower extremity pain; M51.379 Other intervertebral disc degeneration, lumbosacral region without mention of lumbar back pain or lower extremity pain
CPT/HCPCS: 74177; Q9967

== ENCOUNTER 2025-01-23 10:20 | Day surgery (SDC) | payer MEDICARE, OTHER, MEDICAID, SELFPAY ==
[2024-10-26 13:14] VITALS: BMI 31.2
[2025-01-11 13:01] VITALS: BMI 29.0
--- NOTE | 2025-01-23 | PATH_ITS ---
[facility] Accession Number: [id number] No. of containers..04 Tissue . 01 Material submitted: . PART A: colon - TRANSVERSE COLON POLYP PART B: colon - CECAL POLYP PART C: colon - ASCENDING COLON POLYP PART D: rectum - RECTAL POLYP . 01 Diagnosis: Part A: TRANSVERSE COLON POLYP: Sessile serrated adenoma. . Part B: CECAL POLYP: Tubular adenoma. . Part C: ASCENDING COLON POLYP: Tubular adenoma. . Part D: RECTAL POLYP: Tubular adenoma. [facility] 01/25/2025 1638 Local . 01 Electronically signed: . Zachary Gustafson MD, Pathologist NPI- [id number] . 01 Gross description: . Part A: TRANSVERSE COLON POLYP: Received in formalin are multiple fragment of nelson soft tissue measuring 2.0 x 2.0 x 0.7 cm in aggregate. Specimen is sectioned and submitted in its entirety in 4 cassettes. . Part B: CECAL POLYP: Received in formalin is 1 fragment(s) of nelson, soft tissue measuring 0.9 x 0.5 x 0.5 cm submitted entirely in 1 cassette(s) . Part C: ASCENDING COLON POLYP: Received in formalin are multiple fragment of nelson soft tissue measuring 1.2 x 0.7 x 0.6 cm in aggregate. Specimen is sectioned and submitted in its entirety in 1 cassette. . Part D: RECTAL POLYP: Received in formalin is 1 fragment of nelson soft tissue measuring 1.1 x 1.0 x 1.5 cm. Specimen is sectioned and submitted in its entirety in 1 cassette. /EMILE 01/25/2025 1638 Local . 01 Pathologist provided ICD-10: D12.0, D12.2, D12.3, D12.8 . 01 CPT . 276439, 378457, 265237, 291081 Specimen Comment: A courtesy copy of this report has been sent to [facility] Pathology Performed at: [address] [id number] MD Zachary Gustafson MD Phone: [phone]
[2025-01-23] MEDS: LACTATED RINGERS 1,000 ML 42 ML IV (11:01)
--- NOTE | 2025-01-23 11:10 | PM.HP.IH.1 ---
History of Present Illness History of Present Illness Date Patient Seen: 01/23/25 Time Patient Seen: 11:10 Chief complaint: Dx Colonoscopy w/poss bx Narrative: 79-year-old female, developing memory issues, complaining of bloating, constipation abdominal pain. Personal history of breast cancer. No records of colonoscopy. [facility] Medical History Postmastectomy lymphedema syndrome Subclavian steal syndrome GERD (gastroesophageal reflux disease) Depression HLD (hyperlipidemia) Chronic systolic (congestive) heart failure CAD (coronary artery disease) Left lower quadrant pain History of breast cancer in female Breast cancer Surgical History H/O mastectomy Hx of total hysterectomy S/p TAVR (transcatheter aortic valve replacement), bioprosthetic (12/2023) Family History Father Hypertension Cancer Social History marital status: unmarried,single household members: none lives independently: Yes occupational status: previously employed Smoking Status: Former smoker alcohol intake: former Meds Home Medications and Allergies Home Medications Medication Instructions Recorded Confirmed Type furosemide 20 mg tablet 40 mg PO QAM 12/09/23 01/23/25 History atorvastatin 40 mg tablet 40 mg PO DAILY 11/02/24 01/23/25 History carvedilol 6.25 mg tablet 6.25 mg PO BID 11/02/24 01/23/25 History losartan 25 mg tablet 25 mg PO DAILY 11/02/24 01/23/25 History spironolactone 25 mg tablet 25 mg PO DAILY 11/02/24 01/23/25 History aspirin 81 mg chewable tablet 81 mg PO DAILY 01/11/25 01/11/25 History escitalopram oxalate 10 mg tablet 10 mg PO DAILY 01/11/25 01/11/25 History sodium,potassium,mag sulfates 17.5 See Rx Instructions PO .COMPLEX 01/19/25 01/23/25 Rx gram-3.13 gram-1.6 gram oral soln #354 mL (Suprep Bowel Prep Kit) Allergies Allergy/AdvReac Type Severity Reaction Status Date / Time codeine AdvReac Headache Verified 01/23/25 10:39 Review of Systems Review of Systems ROS: Yes All systems reviewed with the patient and are negative except as otherwise documented Exam Vital Signs (past 8 hours): - 01/23/25 10:51 Oxygen Delivery Method Room Air Oxygen Delivery Method Room Air Narrative Exam Narrative: Gen: NAD, sitting comfortably in bed, appears well HEENT: Sclera are anicteric, head is normocephalic and atraumatic, trachea is midline. CV: RRR, no JVD Resp: clear to auscultation bilaterally, equal chest wall movement bilaterally Abd: soft, nontender, normoactive bowel sounds Ext: no edema, full range of motion Neuro: Cranial nerves II-XII grossly intact, no focal deficits Skin: No erythema or ecchymosis Assessment & Plan Assessment and plan (1) Colon cancer screening: Status: Acute (2) Left lower quadrant pain: Status: Acute (3) Change in bowel function: Status: Acute Assessment & Plan narrative: Patient presents for colonoscopy Risks, benefits, alternatives to colonoscopy explained, including but not limited to bowel perforation or other serious complication requiring surgery at less than 1 in 5000 colonoscopies, abdominal pain, cramping or bleeding and less than 1% of colonoscopies, and the chances that we find a diagnosis that would require further intervention of about 2%. Patient agrees to proceed. Time-Based Coding :: [TOTAL MINUTES] spent with patient and on the chart (including review of chart, obtaining history, exam, reviewing outside data, placing orders, documenting exam and treatment plan, and counseling patient) on [DATE]. PROFEE Customer Data Technician Document charge(s): No
[2025-01-23] MEDS: CEFAZOLIN VIAL 1 GM in SODIUM CHLORIDE 0.9% 100 ML IV (11:21)
--- NOTE | 2025-01-23 12:05 | PM.OP.COLON ---
Operative Date/Time/Diagnoses Date of procedure: 01/23/25 Time of procedure: 12:05 Pre-op diagnosis: Constipation Post-op diagnosis: other (Multiple large polyps, including piecemeal resection of large transverse colon polyp) Procedure & Clinicians Study performed: Colonoscopy with hot snare polypectomy x 4, tattoo injection of transverse colon at potential resection margin Same procedure as scheduled: Yes Indications: Constipation Surgeon: Yuri Feng Procedure Notes SCOAP/Timeout: Performed Procedure in detail: Time-out was performed. Mac was induced. Patient was placed in left lateral decubitus position. The perineum was inspected without any gross abnormality. Lubricated pediatric colonoscope was inserted and advanced to the cecum. The terminal ileum was intubated. The colonoscope was withdrawn slowly inspecting the circumference of the colon. There was a small benign-appearing polyp in the cecum, completely removed with hot snare polypectomy and retrieved. There was a larger ascending colon polyp removed in a piecemeal fashion with hot snare polypectomy. There was a greater than 2.5 cm transverse colon polyp, irregular appearance, removed in a piecemeal fashion and potential resection margin for extended right hemicolectomy was marked with carbon black tattoo. There was a benign-appearing rectal polyp completely removed with hot snare polypectomy. Very small polyps may have been missed, prep quality was adequate. Retroflexed view of the rectum showed small, non prolapsed nonbleeding internal hemorrhoids. The scope was withdrawn the patient was taken to PACU in good condition. Scope withdrawal time: 31 Findings: divertiulosis and polyp(s) Specimen(s): other (1. Transverse colon polyp 2. Cecal polyp 3. Ascending colon polyp 4. Rectal polyp) Complications: none Impression: Piecemeal resection of polyps with path pending. We will either need interval colonoscopy in 6 months to assess resection for extended right hemicolectomy to include tattoo margin. Post-procedure Recommendations: Other recommendation(s) (Repeat colonoscopy in 6 months if patient does not off for extended right hemicolectomy.) Plan for aftercare: Home Follow up: weeks ([address] Garcia) Disposition: PACU
[2025-01-23 12:10] VITALS: BP 83/56; PULSE 95; RESP 16; TEMP 36.2; O2SAT 99
[2025-01-23 12:15] VITALS: BP 78/50; PULSE 92; RESP 15; O2SAT 98
[2025-01-23 12:20] VITALS: BP 88/51; PULSE 88; RESP 16; TEMP 36.2; O2SAT 100
[2025-01-23 12:24] VITALS: BP 88/59; PULSE 86; RESP 14; O2SAT 99
[2025-01-23 12:28] VITALS: BP 100/60; PULSE 84; RESP 16; TEMP 36.2; O2SAT 96
== END 2025-01-23 12:55 | disposition home or self-care (01) ==
PROVIDERS: PCP Family Medicine; Referring Provider Surgery; Visit Provider Surgery
PROC: 0DJD8ZZ Inspection of Lower Intestinal Tract, Via Natural or Artificial Opening Endoscopic (ICD-10-PCS; CPT 45378; principal; 2025-01-23 11:30)
DX: K59.00 Constipation, unspecified (principal); R10.9 Unspecified abdominal pain; R14.0 Abdominal distension (gaseous); Z85.3 Personal history of malignant neoplasm of breast; Z87.891 Personal history of nicotine dependence; D12.3 Benign neoplasm of transverse colon; D12.0 Benign neoplasm of cecum; D12.2 Benign neoplasm of ascending colon; D12.8 Benign neoplasm of rectum
CPT/HCPCS: 45381; 45385; J0690; J2704

== ENCOUNTER 2025-03-22 11:47 | Day surgery (SDC) | payer MEDICARE, OTHER, MEDICAID, SELFPAY ==
[2024-10-26 13:14] VITALS: BMI 31.2
[2025-03-22] VITALS (8 sets, daily range): BP systolic 81–134; BP diastolic 28–55; PULSE 65–68; RESP 10–17; TEMP 36.5–37.4; O2SAT 98–99
--- NOTE | 2025-03-22 | PATH_ITS ---
[facility] Accession Number: [id number] No. of containers..02 Tissue . 01 Material submitted: . PART A: esophagus, E-G Junction - GE JUNCTION PART B: esophagus - ESOPHAGUS, DISTAL . 01 Diagnosis: A. GASTROESOPHAGEAL JUNCTION, BIOPSY: Squamocolumnar junctional mucosa with mild active inflammation, consistent with reflux esophagitis. Negative for specialized intestinal metaplasia or fungal organisms on AB/PAS stain. Negative for dysplasia or malignancy. . B. DISTAL ESOPHAGUS, BIOPSY: Squamous mucosa with ulcer, consistent with severe reflux esophagitis. Negative for fungal organisms on PAS stain. No viral cytopathic effect identified. Negative for dysplasia or malignancy. [facility] 03/29/2025 1519 Local . 01 Electronically signed: . Alfredo Hampton MD, PhD, Pathologist NPI- [id number] . 01 Gross description: . Part A: GE JUNCTION: Received in formalin are 4 fragment(s) of nelson, soft tissue measuring 0.1 x 0.1 x 0.1 cm to 0.3 x 0.3 x 0.2 cm submitted entirely in 1 cassette(s) Part B: ESOPHAGUS, DISTAL: Received in formalin are multiple fragment(s) of nelson, soft tissue measuring 0.1 x 0.1 x 0.1 cm to 0.2 x 0.2 x 0.2 cm submitted entirely in 1 cassette(s) /EMILE 03/24/2025 0036 Local . 01 Microscopic: . A. An AB/PAS stain is negative for goblet cells or fungal organisms. A control stain shows appropriate reactivity. . B. An AB/PAS stain is negative for fungal organisms. A control stain shows appropriate reactivity. . . 01 Pathologist provided ICD-10: R13.10, K22.10, K21.00 . 01 CPT . 591925, 929964, 468300, 617238 Specimen Comment: A courtesy copy of this report has been sent to [phone] Performed at: [address] [id number] MD Zachary Gustafson MD Phone: [phone]
--- NOTE | 2025-03-22 14:17 | PM.HP.IH.1 ---
History of Present Illness History of Present Illness Date Patient Seen: 03/22/25 Time Patient Seen: 14:17 Chief complaint: EGD w/poss bx Narrative: Keren is a 71-year-old woman with dysphagia, odynophagia and abdominal pain. See the office note from January for details. COUNT INCLUDES THE [facility] Medical History Postmastectomy lymphedema syndrome Subclavian steal syndrome GERD (gastroesophageal reflux disease) Depression HLD (hyperlipidemia) Chronic systolic (congestive) heart failure CAD (coronary artery disease) Left lower quadrant pain History of breast cancer in female Breast cancer Surgical History H/O mastectomy Hx of total hysterectomy S/p TAVR (transcatheter aortic valve replacement), bioprosthetic (12/2023) Family History Father Hypertension Cancer Social History marital status: unmarried,single household members: none lives independently: Yes occupational status: previously employed Smoking Status: Former smoker alcohol intake: former Meds Home Medications and Allergies Home Medications ?Medication ?Instructions ?Recorded ?Confirmed ?Type furosemide 20 mg tablet 40 mg PO QAM 12/09/23 03/22/25 History atorvastatin 40 mg tablet 40 mg PO DAILY 11/02/24 03/22/25 History carvedilol 6.25 mg tablet 6.25 mg PO BID 11/02/24 03/22/25 History losartan 25 mg tablet 25 mg PO DAILY 11/02/24 03/22/25 History spironolactone 25 mg tablet 25 mg PO DAILY 11/02/24 03/22/25 History aspirin 81 mg chewable tablet 81 mg PO DAILY 01/11/25 03/22/25 History escitalopram oxalate 10 mg tablet 10 mg PO DAILY 01/11/25 03/22/25 History Allergies Allergy/AdvReac Type Severity Reaction Status Date / Time codeine AdvReac Headache Verified 03/22/25 13:22 Exam Vital Signs (past 8 hours): - 03/22/25 13:31 Temperature 99.3 F Pulse Rate 66 Respiratory Rate 15 Blood Pressure 93/55 L Pulse Oximetry 98 Oxygen Delivery Method Room Air Oxygen Delivery Method Room Air Const General: No acute distress Assessment & Plan Assessment and plan (1) Odynophagia: Status: Acute (2) Dysphagia: Qualifiers: Dysphagia type: esophageal phase Qualified Code(s): R13.19 - Other dysphagia Status: Acute Plan EGD Time-Based Coding :: [TOTAL MINUTES] spent with patient and on the chart (including review of chart, obtaining history, exam, reviewing outside data, placing orders, documenting exam and treatment plan, and counseling patient) on [DATE]. PROFEE Ramp Agent Document charge(s): No
--- NOTE | 2025-03-22 14:42 | PM.OP.EGD ---
Operative Date/Time/Diagnoses Date of procedure: 03/22/25 Time of procedure: 14:42 Pre-op diagnosis: Dysphagia and odynophagia Post-op diagnosis: same Procedure & Clinicians Study performed: Esophagogastroduodenoscopy Same procedure as scheduled: Yes Surgeon: Davey Garcia Procedure Notes Procedure in detail: Surgeon: Davey Garcia MD Anesthesia: Tomi Barragan CRNA A timeout was performed. A bite blocked was placed. The patient was positioned in the left lateral decubitus position. Anesthesia was administered. The endoscope was inserted through the bite block and passed through the esophagus and stomach and into the duodenum. The duodenal mucosa appeared normal. The scope was withdrawn into the stomach. No abnormalities were seen. The rest of the stomach was normal. The scope was retroflexed and no clinically significant hiatal hernia was noted. The scope was withdrawn into the esophagus and distal esophagitis was noted. There also appeared to be patches of salmon-colored mucosa in the distal esophagus. Random biopsies were taken from the GE junction and distal esophagus with cold forceps.. The remainder of the esophagus was normal. The scope was withdrawn. The patient was awakened and brought to recovery. Sedation time: 8 minutes Findings: Distal esophagitis and patches salmon-colored mucosa in the distal esophagus Post-procedure Disposition: PACU
== END 2025-03-22 15:35 | disposition home or self-care (01) ==
PROVIDERS: PCP Family Medicine; Referring Provider Surgery; Visit Provider Surgery
PROC: 0DJ08ZZ Inspection of Upper Intestinal Tract, Via Natural or Artificial Opening Endoscopic (ICD-10-PCS; CPT 43239; principal; 2025-03-22 14:00)
DX: R13.19 Other dysphagia (principal); K20.90 Esophagitis, unspecified without bleeding; Z87.891 Personal history of nicotine dependence; K22.10 Ulcer of esophagus without bleeding
CPT/HCPCS: 43239; J2704; J3010

== ENCOUNTER 2025-04-27 07:37 | Day surgery (SDC) | payer MEDICARE, OTHER, MEDICAID, SELFPAY ==
[2024-10-26 13:14] VITALS: BMI 31.2
[2025-04-25 11:47] VITALS: BMI 25.6
[2025-04-27] VITALS (16 sets, daily range): BP systolic 143–171; BP diastolic 59–100; PULSE 69–147; RESP 12–27; TEMP 36.1–36.6; O2SAT 97–100; BMI 25.6
--- NOTE | 2025-04-27 | PATH_ITS ---
[facility] Accession Number: [id number] No. of containers..01 Tissue . 01 Material submitted: . gallbladder - GALLBLADDER . 01 Diagnosis: GALLBLADDER, CHOLECYSTECTOMY: Chronic cholecystitis and cholelithiasis. [facility] 05/02/2025 1450 Local . 01 Electronically signed: . Alina Hood MD, Pathologist NPI- [id number] . 01 Gross description: . Received in formalin with two identifiers and gallbladder, is an intact gallbladder, 8.1 x 3.0 x 2.9 cm, with an unremarkable external surface. The cystic duct margin is inked blue, and a nelson-brown pericystic lymph node candidate is identified, 0.5 cm in greatest dimension. The lumen contains multiple red to orange faceted calculi, up to 1.2 cm in greatest dimension not grossly obstructing the cystic duct and admixed with green mucoid bile. The mucosa is green and velvety with no yellow discoloration, polyps, or lesions identified. The carney average 0.4 cm thick, and construction sales representative sections to include the cystic duct margin, intact lymph node candidate, and full-thickness sections are submitted in A1. ([id number]) /MRV 05/01/2025 1822 Local . 01 Pathologist provided ICD-10: K80.10 . 01 CPT . 910748 Specimen Comment: A courtesy copy of this report has been sent to [phone] Performed at: [address] [id number] MD Zachary Gustafson MD Phone: [phone]
--- NOTE | 2025-04-27 08:03 | PM.PREOP ---
Pre-operative Note COVID-19 COVID-19 status: Not tested Interval Note History & Physical reviewed/Exam performed by Physician: Yes Changes to H&P: No ASA Class (for procedural sedation): II
[2025-04-27] MEDS: LACTATED RINGERS 1,000 ML 42 ML IV ×2 (08:23→09:52)
[2025-04-27] MEDS: INDOCYANINE GREEN 25 MG VIAL IV (08:30)
[2025-04-27] MEDS: CEFAZOLIN 2 GM/100 ML PREMIX 100 ML IV (09:08)
[2025-04-27] MEDS: ACETAMINOPHEN IV 1,000 MG/100 ML VIAL 400 MG IV (09:21)
[2025-04-27] MEDS: BUPIVACAINE 0.5% W/ EPI (PF) 30 ML VIAL INJ (09:22)
--- NOTE | 2025-04-27 09:28 | SUR.OPER ---
Supine on padded OR bed, head on pillow, arms padded and tucked at sides, legs uncrossed, safety belt at thigh, tape over blanket over lower legs . PA and anesthesia in room at time of positioning and approved final position. All pressure points padded
--- NOTE | 2025-04-27 10:59 | P.OP_ITS ---
Operative Date/Time/Diagnoses Date of procedure: 04/27/25 Time of procedure: 10:59 Pre-op diagnosis: Symptomatic cholelithiasis Post-op diagnosis: same Procedure & Clinicians Procedure: Robotic cholecystectomy Same procedure(s) as scheduled: Yes Surgeon: Davey Garcia Automotive Brake Technician: Russ Reyes Click Yes if Unassisted: Yes Anesthesia Type: General Operative Notes Findings: See note Applied: none Estimated Blood Loss (mL): 50 Procedure in detail: The patient was given preoperative antibiotics. The patient was brought to the operating room, placed on the table in the supine position. General endotracheal anesthesia was induced. Both arms were tucked. The abdomen was prepped and draped. A time-out was performed. We made a 1 cm infraumbilical incision. We dissected down to the base of the umbilical stalk using cautery. We grasped the umbilical stalk with a Shelley clamp to elevate the abdominal wall. We opened the fascia in the midline with cautery. We pierced the peritoneum with a Peon clamp. The 12 mm port was placed and the abdomen was insufflated to 15 mmHg. The endoscope was inserted. There was no evidence of any injury from the entry. Next, we placed a single 8 mm port one hand breath to the right of the umbilicus, another port one hand breath to the left of the umbilicus and a final port in the far left lateral abdomen. The patient was then positioned in 15? of reverse Trendelenburg and the table was tilted slightly to the left. The robot was brought in from the patient's left side and docked. A fenestrated bipolar was placed through arm 1, the hook cautery through arm 3 and the ProGrasp through arm 4. The gallbladder was grasped at the dome with the ProGrasp and retracted cephalad. She had a rather enlarged, fatty liver. The gallbladder was dissected until the critical view was obtained. Firefly was used to visualize duct which was quite large. The cystic duct could be seen joining the common duct hepatic duct junction. We then placed hemoclips on the cystic duct and artery and divided the cystic duct and artery between the clips with scissors. The gallbladder was then dissected off the liver and placed in a specimen retrieval bag. The right upper quadrant was irrigated and suctioned until it came back all clear. We then removed the 8 mm ports under direct vision we removed the 12 mm port. We then injected some local into the fascia and closed the fascia at the infraumbilical incision with 3 interrupted 0 Vicryl sutures. The skin incisions were closed with 4 Monocryl and Steri-Strips were applied. Band-Aids were applied over the Steri-Strips. Specimen: Gallbladder and contents Russ BARRETO provided assistance with exposure, retraction and closure of incisions. Complications: none Post-operative Condition: stable Disposition: PACU
[2025-04-27] MEDS: KETOROLAC 30 MG/ML VIAL 15 MG IV (11:49)
--- NOTE | 2025-04-27 12:32 | SUR.PHASEI ---
1220 Dr Garcia. Pt awoke to sternal rub, pushing hands away and stated stop hurting me. C/o right side abd pain and that surgery didn't work. Abd soft. to order labs. Plan to allow pt to cont to wake up slowly.
[2025-04-27] MEDS: BENZOCAINE/MENTHOL 1 LOZ PKT 1 EACH PO (12:54)
[2025-04-27] MEDS: ONDANSETRON 4 MG/2 ML INJ IV (13:00)
--- NOTE | 2025-04-27 13:26 | SUR.PHASEI ---
1300 Pt transfered to Phase Ii with SBAR report to Ronda DEUTSCH. Pt awake, alert, asking about pain and I thought the surgery would take it away. C/O pain, cepacol dave given. Keshia at bedside. She can advise on pt taking pills. Labs drawn per order. Awaiting results.
[2025-04-27 13:38] LABS: Add Manual Diff / Slide Review NO; Hematocrit 40.1 % (36-46); Hemoglobin 13.2 g/dL (12.0-16.0); Lymphocytes Absolute Auto 600 /uL (1100-4500); Mean Corpuscular HGB Conc 32.8 % (30-36); Mean Corpuscular Hemoglobin 26.8 PG (26-34); Mean Corpuscular Volume 81.8 fL (80-100); Platelet Count 254 X10^3/uL (150-400)
[2025-04-27 13:44] LABS: Alanine Aminotransferase 36 IU/L (<35); Albumin 3.9 g/dL (3.5-5.0); Albumin Globulin Ratio 1.3 (1.0-2.8); Alkaline Phosphatase 94 U/L (38-126); Blood Urea Nitrogen 12 mg/dL (7-17); Calcium 8.8 mg/dL (8.4-10.2); Carbon Dioxide 24 mmol/L (22-32); Chloride 100 mmol/L (98-107); Estimated Glomerular Filt Rate > 60 mL/min (>60); Globulin 2.9 g/dL (1.7-4.1); Glucose 128 mg/dL (70-99); HEMOLYSIS 16 (0-50); Potassium 4.6 mmol/L (3.4-5.1); Sodium 131 mmol/L (137-145); Total Protein 6.8 g/dL (6.3-8.2)
[2025-04-27] MEDS: OXYCODONE IR 5 MG TABLET PO (13:44)
--- NOTE | 2025-04-27 14:27 | SUR.PHASEII ---
Patient ambulatory without difficulty and to bathroom able to void.
== END 2025-04-27 14:24 | disposition home or self-care (01) ==
PROVIDERS: PCP Family Medicine; Referring Provider Surgery; Visit Provider Surgery
PROC: 0FT44ZZ Resection of Gallbladder, Percutaneous Endoscopic Approach (ICD-10-PCS; CPT 47562; principal; 2025-04-27 07:45)
DX: K80.10 Calculus of gallbladder with chronic cholecystitis without obstruction (principal); K76.0 Fatty (change of) liver, not elsewhere classified
CPT/HCPCS: 47562; S2900; 80053; 82962; 85025; J0131; J0690; J1100; J1885; J2405; J2704; J3010; J3490